=== PATIENT | male | born 1970 | race Caucasian/White ===

== ENCOUNTER 2022-12-15 12:58 | Emergency (ER) | payer MEDICARE, SELFPAY ==
[2022-12-15] VITALS (25 sets, daily range): BP systolic 100–128; BP diastolic 64–104; PULSE 82–93; RESP 16; TEMP 37.1–37.4; O2SAT 94–99; BMI 22.8
--- NOTE | 2022-12-15 13:09 | CRLHL7_ITS ---
For Patients: As a result of the Century Cures Act, medical imaging exams and procedure reports are released immediately into your electronic medical record. You may view this report before your referring provider. If you have questions, please contact your health care provider. Indication: Seizure Technique: Noncontrast head CT Comparison: No comparison Findings: Axial noncontrast images through the brain parenchyma demonstrates no acute intracranial hemorrhage or mass. No midline shift no acute extra-axial air fluid collections generalized parenchymal volume loss. Periventricular hypo lucencies likely reflecting chronic small vessel ischemic change right posterior craniotomy changes. Impression: No acute intracranial hemorrhage or mass. Please note that all CT scans at this facility use dose modulation, iterative reconstruction, and/or weight-based dosing when appropriate to reduce radiation dose to as low as reasonably achievable. Dictated by Yessy Mercado MD @ 12/15/2022 2:15:49 PM (Electronically Signed)
[2022-12-15] MEDS: LORazepam 2 MG/ML inj 1 MG IVP ×3 (13:15→13:34)
[2022-12-15 13:24] LABS: Basophils Absolute Auto 0.07 K/uL (0.00-0.30); Basophils Percent Auto 0.8 % (0.0-3.0); Eosinophils Absolute Auto 0.23 K/uL (0.00-0.50); Eosinophils Percent Auto 2.6 % (0.0-7.0); Hematocrit 44.3 % (37.0-53.0); Hemoglobin* 15.1 gm/dL (13.5-17.5); Lymphocytes Absolute Auto 1.92 K/uL (0.90-2.90); Lymphocytes Percent Auto 22.1 % (20-44); Mean Corpuscular HGB Conc 34 gm/dL (32-36); Mean Corpuscular Hemoglobin 34 pg (26-34); Mean Corpuscular Volume 98 fL (80-100); Monocytes Percent Auto 16.6 % (0.0-11.0); Neutrophils Absolute Auto 5.02 K/uL (1.7-7.0); Neutrophils Percent Auto 57.9 % (42.0-72.0); Platelet Count* 168 K/uL (140-440); Red Blood Count 4.51 m/uL (4.30-5.90); White Blood Count* 8.68 K/uL (4.50-11.00)
[2022-12-15] MEDS: 0.9 % SODIUM CHLORIDE 1000 ml 1,000 ML IV (13:26)
[2022-12-15 13:27] LABS: Slide Review Reflex No
[2022-12-15 13:35] LABS: Albumin* 4.4 g/dL (3.3-5.0); Chloride* 107 mmol/L (96-114); Sodium* 143 mmol/L (135-149)
[2022-12-15 13:36] LABS: Potassium* 3.5 mmol/L (3.6-5.1)
[2022-12-15 13:37] LABS: Creatinine* 0.7 mg/dL (0.5-1.5); Est. Creatinine Clearance* 117.45; Estimated Glomerular Filt Rate 110 ml/min
[2022-12-15 13:38] LABS: Alanine Aminotransferase* 57 U/L (4-50); Alkaline Phosphatase* 81 U/L (40-150); Aspartate Amino Transferase* 58 U/L (12-35); Bilirubin Direct* 0.1 mg/dL (0.0-0.5); Bilirubin Total* 1.7 mg/dL (0.1-1.5); Blood Urea Nitrogen* 28 mg/dL (7-30); Carbon Dioxide* 29 mmol/L (20-32)
[2022-12-15 13:39] LABS: Calcium* 9.5 mg/dL (8.4-10.6); Glucose* 114 mg/dL (60-115); Magnesium* 1.7 mg/dL (1.5-2.6)
[2022-12-15 13:41] LABS: C Reactive Protein* 0.9 mg/dL (0.5-1.0)
--- NOTE | 2022-12-15 13:42 | ED.NURSE ---
Blood sugar 113 upon arrival to ED
[2022-12-15 14:06] LABS: Erythrocyte SedimentationRate* 12 mm/hr (2-15)
--- NOTE | 2022-12-15 14:30 | ED.NURSE ---
Absence of any seizure activity noted around 14:15. Patient sleeping comfortably now.
--- NOTE | 2022-12-15 16:04 | ED_ITS ---
HPI - General Adult General Date Seen: 12/15/22 Chief complaint: Seizure Stated complaint: Seizure Time Seen by Provider: 12/15/22 13:09 Source: patient and family Mode of arrival: wheelchair Limitations: other History of Present Illness HPI narrative: Patient is a 52-year-old male here with a caregiver for evaluation of seizure. He has an underlying seizure disorder and is on 4 different seizure medications. He was brought in by car to partial seizure, typical for his seizures with left-sided seizure activity. His caregiver provides most of the history. Apparently yesterday they were at a campground. They are here from [place], and his caregiver says that at around 6:30 a.m. or 645 he had gone to the bathroom. By about 730 they were unable to find him, it sounds like they spent a few hours looking for him, finally called 911 and ultimately he was found about 5 miles away from the camp ground, he had walked this distance after losing his way. He recalls this time, he denies any injuries and the caregiver denies any seeming injuries when he returned to [place] around midnight. Today, he had seemed a little more fatigued than usual, about an hour prior to coming in to the ER apparently had developed a leftward gaze which is unusual for him but not typically part of his seizure behavior. He had gone to lay down, but then about 1/2 hour after that developed seizure activity. His caregiver says they do not have anything in terms of acute seizure management and so they brought him here. His last seizure was about 7 months ago. Patient himself was verbal through all of this, he complained of headache and feeling shaky. He denied injury last night. Blood sugar was checked earlier and was 83. No reports of any missed seizure medications. Related Data Home Medications Medication Instructions Recorded Confirmed atorvastatin 40 mg tablet 40 mg PO QPM 12/15/22 12/15/22 gabapentin 300 mg capsule 300 mg PO 3XD 12/15/22 12/15/22 lacosamide 50 mg tablet 75 mg PO BID 12/15/22 12/15/22 lactulose 10 gram/15 mL oral 30 ml PO QID 12/15/22 12/15/22 solution levetiracetam 1,000 mg tablet 1,000 mg PO BID 12/15/22 12/15/22 pantoprazole 40 mg tablet,delayed 40 mg PO DAILY 12/15/22 12/15/22 release propranolol 60 mg capsule,24 60 mg PO DAILY 12/15/22 12/15/22 hr,extended release quetiapine 50 mg tablet 50 mg PO QPM 12/15/22 12/15/22 rifaximin .ROUTE 12/15/22 Allergies Allergy/AdvReac Type Severity Reaction Status Date / Time No Known Drug Allergies Allergy Verified 12/15/22 13:35 Review of Systems Status of ROS: Reports: 10 or more systems reviewed and unremarkable except as noted in History and below [facility] Social History Smoking Status: Current every day smoker What tobacco products do you use: cigarettes Smoking packs per day: 0.25 Smoking cigarettes per day: 5.0 How often do you have a drink containing alcohol: never AUDIT-C Alcohol total score: 0 Non-prescribed substance use: denies use service: No Exam Narrative: Exam Narrative: Vital signs as noted above. In general, an alert male, head is rotated to the left, he is drooling, incontinent of urine. Head: Normocephalic, atraumatic. Eyes: Pupils are equal reactive. Conjunctivae are normal. ENT: Mucous membranes are moist. Neck: Supple, no stridor. Heart: Regular rate and rhythm. No murmur or rub. Lungs: Clear bilaterally. No increased work of breathing, crackles or wheezes. Abdomen: Soft and nontender. No organomegaly. Extremities: Well perfused. No edema. No calf tenderness. Pulses intact. Neurologic: Patient is alert and oriented to person and place. Speech is fluent although he has a little bit difficult to understand. There was shaking noted left upper extremity greater than the left lower extremity. Leftward gaze. When the seizure activity abated, he seemed to have a left facial paralysis. Affect: Normal. Skin: Warm and dry. Well perfused. Const: Vital Signs, click to edit/add: Vital Signs - 24 hr 12/15/22 13:17 12/15/22 13:17 12/15/22 13:27 Temperature 98.8 F Pulse Rate 88 Pulse Rate [Left P ulse Oximeter] 90 Respiratory Rate 16 Blood Pressure 106/86 Blood Pressure [Le ft Upper Arm] 116/104 H Pulse Oximetry 97 96 Oxygen Delivery Me thod Room Air 12/15/22 13:30 12/15/22 13:50 12/15/22 13:53 Temperature Pulse Rate 85 90 93 Pulse Rate [Left P ulse Oximeter] Respiratory Rate Blood Pressure 128/90 H Blood Pressure [Le ft Upper Arm] Pulse Oximetry 97 94 95 Oxygen Delivery Me thod 12/15/22 14:00 12/15/22 14:07 12/15/22 14:15 Temperature 99.3 F Pulse Rate 92 93 Pulse Rate [Left P ulse Oximeter] Respiratory Rate Blood Pressure Blood Pressure [Le ft Upper Arm] Pulse Oximetry 98 96 Oxygen Delivery Me thod 12/15/22 14:16 12/15/22 14:30 12/15/22 14:45 Temperature Pulse Rate 91 91 88 Pulse Rate [Left P ulse Oximeter] Respiratory Rate Blood Pressure 113/73 Blood Pressure [Le ft Upper Arm] Pulse Oximetry 96 98 98 Oxygen Delivery Me thod 12/15/22 15:00 12/15/22 15:06 12/15/22 15:15 Temperature Pulse Rate 89 89 85 Pulse Rate [Left P ulse Oximeter] Respiratory Rate Blood Pressure 100/69 Blood Pressure [Le ft Upper Arm] Pulse Oximetry 97 99 96 Oxygen Delivery Me thod 12/15/22 15:30 12/15/22 15:45 12/15/22 15:53 Temperature Pulse Rate 82 82 86 Pulse Rate [Left P ulse Oximeter] Respiratory Rate Blood Pressure 105/64 Blood Pressure [Le ft Upper Arm] Pulse Oximetry 99 98 98 Oxygen Delivery Me thod 12/15/22 15:54 12/15/22 16:00 12/15/22 16:15 Temperature Pulse Rate 85 87 86 Pulse Rate [Left P ulse Oximeter] Respiratory Rate Blood Pressure Blood Pressure [Le ft Upper Arm] Pulse Oximetry 96 96 97 Oxygen Delivery Me thod 12/15/22 16:30 12/15/22 16:45 12/15/22 17:00 Temperature Pulse Rate 82 84 83 Pulse Rate [Left P ulse Oximeter] Respiratory Rate Blood Pressure Blood Pressure [Le ft Upper Arm] Pulse Oximetry 98 97 96 Oxygen Delivery Me thod 12/15/22 17:15 12/15/22 17:30 Temperature Pulse Rate 82 84 Pulse Rate [Left P ulse Oximeter] Respiratory Rate Blood Pressure Blood Pressure [Le ft Upper Arm] Pulse Oximetry 96 97 Oxygen Delivery Me thod Documenting provider has reviewed patient's vital signs: yes Course Course Hospital Course: Initial arrival, an IV was placed and he was maintained on the monitor and oximetry. He was given 1 mg of Ativan, followed couple minutes later by a 2nd mg of Ativan. This resulted in cessation of seizure activity although he still had some shivering type motor activity. I did want to get a head CT on him given his complaints of headache and his missing 5 hours last night, so given additional mg of Ativan just trying to get that motor activity settled down so that we could get a good head CT. We checked a blood sugar here it was normal at 113. His head CT by my review did not show any acute findings, final radiology read is likewise negative. Labs show normal white blood cell count of 8.7, hemoglobin is 15. Metabolic panel is unremarkable. Total bilirubin is mildly elevated at 1.7, LFTs are mildly elevated as well with an AST of 58 an ALT of 57 significance unknown. Alk-phos is normal. CRP is 0.9. I did send a Keppra level but this will be a send out. He has not had further seizure activity since getting his Ativan. He has been sleeping. There do not seem to be any acute metabolic, infectious, traumatic or other inciting events today for his seizure. It may have been brought on by the stress of last night's incident. Patient slept here for couple more hours, he is ambulatory at this time, still little bit sleepy but his caregiver feels that he is pretty close to baseline and is comfortable taking him home. Neurologically he is nonfocal at this time. The left facial droop has resolved, he is conversant, answers questions appropriately and caregiver has no further concerns. Vital Signs Vital signs: Initial Vital Signs Temperature 98.8 F 12/15/22 13:17 Temperature Source Temporal Artery Scan 12/15/22 13:17 Pulse Rate 88 12/15/22 13:17 Pulse Rhythm Regular 12/15/22 13:17 Respiratory Rate 16 12/15/22 13:17 Blood Pressure 116/104 H 12/15/22 13:17 Blood Pressure Mean 108 H 12/15/22 13:17 Blood Pressure Position Supine 12/15/22 13:17 Pulse Oximetry 97 12/15/22 13:17 Oxygen Delivery Method Room Air 12/15/22 13:17 Vital Signs Temperature 98.8 F 12/15/22 13:17 Pulse Rate 88 12/15/22 13:17 Respiratory Rate 16 12/15/22 13:17 Blood Pressure 116/104 H 12/15/22 13:17 Pulse Oximetry 97 12/15/22 13:17 Oxygen Delivery Method Room Air 12/15/22 13:17 Temperature 99.3 F 12/15/22 14:07 Pulse Rate 84 12/15/22 17:30 Respiratory Rate 16 12/15/22 13:17 Blood Pressure 105/64 12/15/22 15:53 Pulse Oximetry 97 12/15/22 17:30 Oxygen Delivery Method Room Air 12/15/22 13:17 Medical Decision Making Lab Data Labs: Lab Results 12/15/22 Range/Units 13:03 WBC 8.68 (4.50-11.00) K/uL RBC 4.51 (4.30-5.90) m/uL Hgb 15.1 (13.5-17.5) gm/dL Hct 44.3 (37.0-53.0) % MCV 98 (80-100) fL MCH 34 (26-34) pg MCHC 34 (32-36) gm/dL RDW Coeff of Gaetano 13.0 (11.5-15.5) % Plt Count 168 (140-440) K/uL Neut % (Auto) 57.9 (42.0-72.0) % Lymph % (Auto) 22.1 (20-44) % [place] % (Auto) 16.6 H (0.0-11.0) % Eos % (Auto) 2.6 (0.0-7.0) % Baso % (Auto) 0.8 (0.0-3.0) % Neut # (Auto) 5.02 (1.7-7.0) K/uL Lymph # (Auto) 1.92 (0.90-2.90) K/uL [place] # (Auto) 1.40 H (0.00-0.90) K/UL Eos # (Auto) 0.23 (0.00-0.50) K/uL Baso # (Auto) 0.07 (0.00-0.30) K/uL Abs Immat Gran (auto) 0.00 (0.00-0.30) K/uL Imm/Tot Granulo (auto) 0.0 % ESR 12 (2-15) mm/hr Sodium 143 (135-149) mmol/L Potassium 3.5 L (3.6-5.1) mmol/L Chloride 107 (96-114) mmol/L Carbon Dioxide 29 (20-32) mmol/L BUN 28 (7-30) mg/dL Creatinine 0.7 (0.5-1.5) mg/dL Estimated Creat Clear 117.45 Estimated GFR 110 ml/min Glucose 114 (60-115) mg/dL Calcium 9.5 (8.4-10.6) mg/dL Magnesium 1.7 (1.5-2.6) mg/dL Total Bilirubin 1.7 H (0.1-1.5) mg/dL Direct Bilirubin 0.1 (0.0-0.5) mg/dL AST 58 H (12-35) U/L ALT 57 H (4-50) U/L Alkaline Phosphatase 81 (40-150) U/L C-Reactive Protein 0.9 (0.5-1.0) mg/dL Total Protein 8.0 (6.0-8.3) g/dL Albumin 4.4 (3.3-5.0) g/dL Discharge Plan Discharge Clinical Impression: Partial seizure disorder, History of traumatic brain injury Patient Disposition: Home w/ Parent or Adult Condition: Improved Instructions: Epilepsy (ED) Additional Instructions: Follow-up with Neurology as needed on return home. Return to the ER for recurrent seizures or other concerns. Continue current medications. CT scan today showed no acute findings. Labs were normal. I did order a Keppra level but this is a send out lab and will not return for a couple of days. This is sometimes helpful for neurology follow-up. Prescriptions: No Action atorvastatin 40 mg tablet 40 mg PO QPM propranolol 60 mg capsule,extended release 24 hr 60 mg PO DAILY pantoprazole 40 mg tablet,delayed release (DR/EC) 40 mg PO DAILY gabapentin 300 mg capsule 300 mg PO 3XD lactulose 10 gram/15 mL solution 30 ml PO QID quetiapine 50 mg tablet 50 mg PO QPM levetiracetam 1,000 mg tablet 1,000 mg PO BID lacosamide 50 mg tablet 75 mg PO BID rifaximin [Xifaxan] .ROUTE Follow Up/Referrals: Provider,Not a Local [Primary Care Provider] - Stand Alone Forms: MyHealth Info Instructions
--- NOTE | 2022-12-15 17:08 | ED.NURSE ---
Patient repositioned, answering questions coherently then falling back asleep. No garbled speech. Improvement of symptoms.
[2022-12-18 10:24] LABS: Keppra (Levetiracetam) 31 ug/mL (10-40)
== END 2022-12-15 18:18 | disposition home or self-care (01) ==
PROVIDERS: Emergency Provider Emergency Medicine
DX: G40.109 Localization-related (focal) (partial) symptomatic epilepsy and epileptic syndromes with simple partial seizures, not intractable, without status epilepticus (principal); Z87.820 Personal history of traumatic brain injury
CPT/HCPCS: 36415; 70450; 80048; 80076; 80177; 83735; 85025; 85651; 86140; 93005; 94761; 96374; 96375; 99284; 99291; J2060; J7030